=== PATIENT | female | born 1980 | race Caucasian/White ===

== ENCOUNTER 2025-04-20 16:09 | Emergency (ER) | payer MEDICAID ==
[~2025-04-20] VITALS: Ht 170.2 cm; Wt 140.9 kg
[2025-04-20 16:12] VITALS: TEMP 98.4
--- NOTE | 2025-04-20 16:22 | ELECTROCARDIOGRAPH REPORT ---
[facility] Test Date: 2025-04-20 Test Time: 16:20:35 Pat Name: WENDY YADAV Department: EMERGENCY ROOM Room: Gender: F Pc Tech: KACI : 1980 Requested By: CARMEN MCCORMACK Order Number: [id number] Reading MD: Measurements Intervals [place] Rate: 146 P: 71 MN: 137 QRS: 53 QRSD: 81 T: 12 QT: 273 QTc: 426 Interpretive Statements Sinus tachycardia Abnormal R-wave progression, late transition Baseline wander in lead(s) II,III,aVL,aVF,V1 Please click the below link to view image of tracing.
--- NOTE | 2025-04-20 16:43 | Physician Documentation ---
History of Present Illness ~ Chief Complaint: Medical Clearance Stated Complaint: MED CLEARANCE Time Seen by MD: 16:42 HPI This is a 44-year-old female with a history of heavy alcohol use. She reports that today, she was on her way to [place] for alcohol rehab, when she began to feel very unwell. She admits that she drank an entire bottle of Tequila in anticipation of entering rehab. This is a little more than her usual amount to drink at one time. With questioning, she admits that she is having chest pain and overall does not feel right. Medication Reconciliation Allergies: Coded Allergies: No Known Allergies (Unverified , 04/20/25) Scheduled Folic Acid* (Folic Acid*), 1 TAB PO DAILY Lorazepam (Ativan), 1 TAB PO Q8H Mecobalamin (B12 Active), 1 TAB PO DAILY Ondansetron 8mg ODT (Ondansetron Odt), 1 TAB PO Q6H Thiamine HCl (Vitamin B-1), 2 TAB PO DAILY Review of Systems ROS As stated above in the HPI, otherwise all systems are reviewed and negative. Physical Exam Vital Signs: Temperature: 98.4, Source: Temporal, Heart Rate: 135, Respiratory Rate: 17, BP: 91/52, Pulse Oximetry: 94, Weight: 140.910 Physical Exam General: Alert, no apparent distress. HEENT: PERRL, EOMI, no injection, moist mucous membranes. Neck: Full range of motion. Respiratory: Lungs clear, no respiratory distress. Chest: No accessory muscle use. Cardiovascular: Regular rate and rhythm, no murmurs. Tachycardic. Gastrointestinal: Soft, nontender, nondistended. Bowels sounds present. Extremities: Normal range of motion, no deformity. Neurologic: Oriented x4. Slurred speech, somewhat slow to respond. Psychiatric: Normal mood and affect. Skin: Normal color, warm and dry. No edema, no ecchymosis. Progress Results/Orders Results/Orders Orders - MARINA ASHLEY STEWARD/STEWARDESS THIRD * Iv Access / Saline Lock * (04/20/25 16:43) Completed Orders - MARINA ASHLEY STEWARD/STEWARDESS THIRD Ethanol (04/20/25 16:43) Normal Saline 1000ml (0.9% Sodium Chlori (04/20/25 16:45) Hs Troponin I W Calculations (04/20/25 16:54) Potassium Cl Sr Tablet (K-Dur Tablet) (04/20/25 17:45) Medications Received in ER Medications (Trade) Dose Ordered Sig/Sabiha Route PRN Reason Start Time Stop Time Status Last Admin Dose Admin Sodium Chloride 1,000 ml @ 1,000 mls/hr ONCE ONCE IV 04/20/25 16:45 04/20/25 17:44 DC 04/20/25 17:34 1,000 MLS/HR Vital Signs 04/20/25 16:12 Temp 98.4 Pulse 135 Resp 17 B/P (MAP) 91/52 Pulse Ox 94 Laboratory Tests Test 04/20/25 17:04 White Blood Count 12.3 H Red Blood Count 5.16 Hemoglobin 14.0 Hematocrit 43.5 Mean Corpuscular Volume 84.2 Mean Corpuscular Hemoglobin 27.2 Mean Corpuscular Hemoglobin Concent 32.3 L Red Cell Distribution Width 15.5 H Platelet Count 460 H Mean Platelet Volume 7.1 L Neutrophils (%) (Auto) 66.4 Lymphocytes (%) (Auto) 27.8 Monocytes (%) (Auto) 3.4 Eosinophils (%) (Auto) 1.6 Basophils (%) (Auto) 0.8 Neutrophils # (Auto) 8.2 H Lymphocytes # (Auto) 3.4 Monocytes # (Auto) 0.4 Eosinophils # (Auto) 0.2 Basophils # (Auto) 0.1 CBC Comment Sodium Level 141 Potassium Level 3.2 L Chloride Level 103 Carbon Dioxide Level 24.8 Anion Gap 13 Blood Urea Nitrogen 13 Creatinine 0.93 H Estimated GFR/1.73 m2 65 BUN/Creatinine Ratio 14.0 Glucose Level 105 H Calcium Level 8.0 L Total Bilirubin 0.2 Aspartate Amino Transf (AST/SGOT) 28 Alanine Aminotransferase (ALT/SGPT) 30 Alkaline Phosphatase 155 H Troponin I High Sensitivity 11 Total Protein 7.2 Albumin 2.9 L Globulin 4.3 Albumin/Globulin Ratio 0.7 L Lipase 23 Chemistry Comments Ethyl Alcohol Level 283 H EKG/XRAY/CT/US/VASC/MRI EKG : Additional Comment 1620 EKG interpreted to show ST rate of 140's. No ST segment elevation. QTC 426 ms. Medical Decision Making Differential Diagnosis This 44-year-old female with a history of alcohol use disorder who presented today requesting medical clearance to enter [facility]. She presented here due to not feeling well. She admitted that she drank an entire bottle of Tequila in anticipation of presenting to the rehab facility. This is a little more than she usually drinks in one sitting. She was evaluated in the emergency department and found to have a blood alcohol level that was markedly elevated at 283. She denied nausea or vomiting. She was treated with a liter of saline as a bolus. Her slightly low potassium of 3.2 was replaced with 20 mEq of KCl. She will be sent to rehab after being medically cleared. She will be sent with B12, thiamine, folic acid, p.r.n. Ativan. She is to return to the emergency de partment at any time if worse. Departure Time of Disposition: 17:53 Disposition: 01 HOME / SELF CARE / HOMELESS Impression: Primary Impression: Alcoholic intoxication Additional Impression: General medical exam Condition: Stable Discharge Instructions: Alcohol Abuse and Nutrition, Alcohol Intoxication, Medical Screening Exam Additional Instructions: MEDICALLY CLEARED TO ENTER REHABILITATION AT [place]. Use the Lorazepam as needed for symptoms of alcohol withdrawal. Take the vitamins as prescribed. RETURN IF WORSE. Referrals: NO PRIMARY CARE PROVIDER (PCP) Prescriptions Lorazepam (Ativan) 1 Mg Tablet 1 TAB PO Q8H for alcohol w/d symptoms for 5 Days, #15 TAB 0 Refills Prov: MARINA ASHLEY NP 04/20/25 Folic Acid* (Folic Acid*) 0.4 Mg Tablet 1 TAB PO DAILY for 30 Days, #30 TAB Prov: MARINA ASHLEY NP 04/20/25 Mecobalamin (B12 Active) 1,000 Mcg Tab.chew 1 TAB PO DAILY for 30 Days, #30 TAB 0 Refills Prov: MARINA ASHLEY NP 04/20/25 Thiamine HCl (Vitamin B-1) 50 Mg Tablet 2 TAB PO DAILY for 30 Days, #60 TAB 0 Refills Prov: MARINA ASHLEY NP 04/20/25 Ondansetron 8mg ODT (Ondansetron Odt) 8 Mg Tab.rapdis 1 TAB PO Q6H for nausea/vomiting for 3 Days, #12 TAB 0 Refills Prov: MARINA ASHLEY NP 04/20/25 Education Educated: Patient, Family Educated regarding: diagnosis, treatment, prognosis, need for follow up Signature Scribe Signature: x Attestation: The note accurately reflects work and decisions made by me.Marina Smalls NP 04/20/25 16:51 MARINA ASHLEY NP Apr 20, 2025 16:42
[2025-04-20 17:30] LABS: CREATININE 0.93 MG/DL (0.40-0.90); ETHANOL 283 MG/DL (<10); TOTAL CARBON DIOXIDE 24.8 MMOL/L (24-32); eCRCL 74 ML/MIN; eGFR 65 ML/MIN
[2025-04-20] MEDS: normal saline 1000ml 1,000 ML IV ONE (17:34)
[2025-04-20 17:35] LABS: MEAN PLATELET VOLUME 7.1 FL (7.4-10.4); RED CELL DISTRIBUTION WIDTH 15.5 % (11.5-14.5)
[2025-04-20] MEDS ORDERED: THIA50TA10 PO (17:55)
[2025-04-20] MEDS ORDERED: FOLI0.4T6 PO (17:55)
[2025-04-20] MEDS ORDERED: LORA-269 PO (17:55)
[2025-04-20] MEDS ORDERED: MECO10005 PO (17:55)
[2025-04-20] MEDS ORDERED: ONDA-245 PO (17:55)
[2025-04-20 18:24] VITALS: BP 108/75; PULSE 98; RESP 19; O2SAT 96
[2025-04-20] MEDS: potassium Cl 20 mEq SR tablet PO ONE (18:24)
[2025-04-21] MEDS ORDERED: ZOLP-679 PO (18:57)
[2025-04-21] MEDS ORDERED: PROP20TA6 PO (18:57)
[2025-04-21] MEDS ORDERED: ESCI20TA39 PO (18:57)
[2025-04-21] MEDS ORDERED: L-NO1TBD14 PO (18:57)
[2025-04-21] MEDS ORDERED: LORA-269 PO (18:57)
[2025-04-21] MEDS ORDERED: CYPR4TAB44 PO (18:57)
[2025-04-21] MEDS ORDERED: ERGO500093 PO (18:57)
[2025-04-21] MEDS ORDERED: BUPR-726 PO (18:57)
== END 2025-04-20 18:27 | disposition home or self-care (01) ==
LOC: ER 16:10
DX: F10.129 Alcohol abuse with intoxication, unspecified (principal); Z79.899 Other long term (current) drug therapy; Y90.9 Presence of alcohol in blood, level not specified
CPT/HCPCS: 36415; 80053; 80320; 83690; 84484; 85025; 93005; 96360; 99284; J7030

== ENCOUNTER 2025-04-21 06:14 | Inpatient (IN) | payer MEDICAID ==
[~2025-04-21] VITALS: Ht 165.1 cm; Wt 107.3 kg
[~2025-04-21 06:14] MED LIST: FOLI0.4T6 PO; LORA-269 PO; MECO10005 PO; ONDA-245 PO; THIA50TA10 PO
--- NOTE | 2025-04-21 08:30 | Physician Documentation ---
History of Present Illness General Chief Complaint: Medical Clearance Stated Complaint: GENERAL WEAKNESS Time Seen by MD: 08:16 History of Present Illness Initial Comments The patient is a 44-year-old female with a history of alcohol use disorder who comes here from [facility] because she was vomiting all last night. She is from [place], [place] and was referred to [facility] by her PCP. She was seen here yesterday prior to entering [facility] after having drunk an entire bottle of Tequila. She was treated here and referred back to [facility]. Prescriptions for vitamins and Ativan were provided. She reports that the vitamins were dispensed but the Ativan was not. Her current CIWA score is 15. She also has some right upper quadrant pain and is status post cholecystectomy years ago. Patient had one alcohol withdrawal seizure years ago. Medication Reconciliation Allergies: Coded Allergies: No Known Allergies (Unverified , 04/20/25) Scheduled Folic Acid* (Folic Acid*), 1 TAB PO DAILY Lorazepam (Ativan), 1 TAB PO Q8H Mecobalamin (B12 Active), 1 TAB PO DAILY Ondansetron 8mg ODT (Ondansetron Odt), 1 TAB PO Q6H Thiamine HCl (Vitamin B-1), 2 TAB PO DAILY Review of Systems ROS Constitutional: Denies chills, fatigue, fever, weight gain or weight loss. HEENT: Denies hearing loss, sinus pressure or visual changes. Respiratory: Denies cough, shortness of breath or wheezing. Cardiovascular: Denies chest pain, pain while walking (claudication), edema or palpitations. Gastrointestinal: Nausea, vomiting and right upper quadrant pain Genitourinary: Denies painful urination (dysuria), excessive amount of urine (polyuria) or urinary frequency. Metabolic/Endocrine: Denies cold intolerance, heat intolerance, excessive thirst (polydipsia) or excessive hunger (polyphagia). Neurological: Anxious and tremulous Psychiatric: Denies anxiety or depression. Integumentary: Denies breast discharge, breast lump, hives, mole change(s), shea h or skin lesion. Musculoskeletal: Denies back pain, joint pain, joint swelling or neck pain. Hematologic: Denies easily bleeding, easily bruises, lymphedema or issues with blood clots. Immunologic: Denies food allergies or seasonal allergies. Physical Exam Physical Exam Vital Signs: Temperature: 97.9, Source: Temporal, Heart Rate: 83, Respiratory Rate: 20, BP: 146/59, Pulse Oximetry: 98, Weight: 107.280 Oxygen Flow Rate: 0 Physical Exam Physical Exam Vitals and nursing note reviewed. Constitutional: General: Patient is awake, alert, oriented x 4 in no acute distress and well appearing. Speech is clear and lucid. Appearance: Normal appearance. Patient is not ill-appearing, toxic-appearing or diaphoretic. HENT: Head: Normocephalic and atraumatic. Mouth/Throat: Mouth: Mucous membranes are moist. Pharynx: Oropharynx is clear. Eyes: General: No scleral icterus. Extraocular Movements: Extraocular movements intact. Pupils: Pupils are equal, round, and reactive to light. Neck: Supple, no Kernig or Brudzinski sign. Cardiovascular: Rate and Rhythm: Normal rate and regular rhythm. Heart sounds: No murmur heard. Pulmonary: Effort: No respiratory distress. Breath sounds: No wheezing, rhonchi or rales. Abdominal: General: There is no distension. Palpations: There is no fluid wave, hepatomegaly or mass. Tenderness: Mild right upper quadrant tenderness. There is no guarding. Musculoskeletal: General: No swelling or deformity. Skin: Coloration: Skin is not jaundiced. Findings: No erythema or rash. Neurological: Mental Status: Patient is alert. Progress Results/Orders Results/Orders Orders - BEATRIS LUONG MD Drug Screen, Urine (04/21/25 08:23) Ultrasound Of Abdomen (04/21/25 08:32) Page Hospitalist (04/21/25 09:51) Completed Orders - BEATRIS LUONG MD CMP (04/21/25 08:23) Cbc/Diff (04/21/25 08:23) Ethanol (04/21/25 08:23) MG (04/21/25 08:23) Lipase (04/21/25 08:23) Pt Inr (04/21/25 08:23) Normal Saline 1000ml (0.9% Sodium Chlori (04/21/25 08:25) Phenobarbital Inj (Phenobarbital Inj.) (04/21/25 08:25) Diphenhydramine Inj (Benadryl Inj.) (04/21/25 08:25) Prochlorperazine Inj (Compazine Inj) (04/21/25 08:25) Ultrasound Of Abdomen (04/21/25 08:32) Medications Received in ER Medications (Trade) Dose Ordered Sig/Sabiha Route PRN Reason Start Time Stop Time Status Last Admin Dose Admin Sodium Chloride 1,000 ml @ 1,000 mls/hr ONCE ONCE IV 04/21/25 08:25 04/21/25 09:24 DC 04/21/25 09:13 1,000 MLS/HR (phenoBARBITAL inj.) 260 mg ONCE ONCE IV 04/21/25 08:25 04/21/25 08:30 DC 04/21/25 09:13 260 MG (Benadryl inj.) 25 mg ONCE ONCE IV 04/21/25 08:25 04/21/25 08:30 DC 04/21/25 09:14 25 MG (Compazine inj) 10 mg ONCE ONCE IV 04/21/25 08:25 04/21/25 08:30 DC 04/21/25 09:13 10 MG Vital Signs 04/21/25 04/21/25 04/21/25 04/21/25 06:21 08:17 08:30 09:25 Temp 97.9 98.4 Pulse 83 76 76 Resp 20 16 13 13 B/P (MAP) 146/59 130/66 (87) 130/66 (87) Pulse Ox 98 97 97 O2 Flow Rate 0 0 0 Laboratory Tests Test 04/21/25 08:42 White Blood Count 12.7 H Red Blood Count 4.76 Hemoglobin 13.2 Hematocrit 39.9 Mean Corpuscular Volume 83.9 Mean Corpuscular Hemoglobin 27.8 Mean Corpuscular Hemoglobin Concent 33.2 Red Cell Distribution Width 15.2 H Platelet Count 345 Mean Platelet Volume 7.4 Neutrophils (%) (Auto) 81.4 H Lymphocytes (%) (Auto) 10.6 L Monocytes (%) (Auto) 6.7 Eosinophils (%) (Auto) 0.6 Basophils (%) (Auto) 0.7 Neutrophils # (Auto) 10.3 H Lymphocytes # (Auto) 1.3 Monocytes # (Auto) 0.9 Eosinophils # (Auto) 0.1 Basophils # (Auto) 0.1 CBC Comment Prothrombin Time 9.7 INR International Normalized Ratio 0.9 Coagulation Comments Sodium Level 137 Potassium Level 3.8 Chloride Level 99 Carbon Dioxide Level 27.1 Anion Gap 11 Blood Urea Nitrogen 10 Creatinine 0.71 Estimated GFR/1.73 m2 89 BUN/Creatinine Ratio 14.1 Glucose Level 113 H Calcium Level 8.7 Magnesium Level 1.7 Total Bilirubin 0.7 Aspartate Amino Transf (AST/SGOT) 24 Alanine Aminotransferase (ALT/SGPT) 28 Alkaline Phosphatase 131 H Total Protein 6.5 Albumin 2.8 L Globulin 3.7 Albumin/Globulin Ratio 0.8 L Lipase 13 L Chemistry Comments Ethyl Alcohol Level < 10 Medical Decision Making Findings This 44-year-old female with alcohol use disorder presents here from the rehabilitation facility because she was vomiting excessively last night unresponsive to Zofran. CIWA scores 15. She did have some right upper quadrant pain but the ultrasound of the right upper quadrant is negative for acute findings (she is status post cholecystectomy). I am treating her for alcohol withdrawal and she will require admission. Departure Disposition: ADMITTED INPATIENT Admitted to Inpatient Unit: to hospitalist Impression: Primary Impression: Alcohol withdrawal Condition: Stable Referrals: NO PRIMARY CARE PROVIDER (PCP) Signature Scribe Signature: . Attestation: . BEATRIS LUONG MD Apr 21, 2025 08:30
[2025-04-21 09:09] LABS: MEAN PLATELET VOLUME 7.4 FL (7.4-10.4); RED CELL DISTRIBUTION WIDTH 15.2 % (11.5-14.5)
[2025-04-21 09:10] LABS: INR 0.9 INR
[2025-04-21] MEDS: normal saline 1000ml 1,000 ML IV ONE (09:13)
[2025-04-21 09:25] LABS: CREATININE 0.71 MG/DL (0.40-0.90); TOTAL CARBON DIOXIDE 27.1 MMOL/L (24-32); eCRCL 90 ML/MIN; eGFR 89 ML/MIN
--- NOTE | 2025-04-21 09:29 | RADIOLOGY REPORT ---
INDICATION: Right upper quadrant pain TECHNIQUE: Multiple real-time sonographic images were obtained of the right upper quadrant. COMPARISON: None FINDINGS: The liver demonstrates homogeneous echotexture without focal mass lesions. The liver measures 16 cm. There is no intrahepatic or extrahepatic ductal dilatation. The common duct measures 0.4 cm. Post cholecystectomy. The right kidney measures 10.3 cm. The right kidney is normal in contour, size, and shape. The echogenicity is normal. There is no hydronephrosis. The pancreas is not well visualized due to overlying bowel gas. IMPRESSION: Post cholecystectomy. No acute findings.
[2025-04-21 09:30] LABS: ETHANOL < 10 MG/DL (<10)
[2025-04-21] MEDS ORDERED: potassium Cl 40MEQ/1/2NS 520ml 520 ML IV PRN (11:15)
[2025-04-21] MEDS ORDERED: potassium Cl 20 mEq SR tablet PO PRN (11:15)
[2025-04-21] MEDS ORDERED: ondansetron/PF 4mg/2ml inj IV PRN (11:15)
[2025-04-21] MEDS ORDERED: magnesium sulf-water 4G/100mL 100 ML IV PRN (11:15)
[2025-04-21] MEDS ORDERED: magnesium hydroxide 30ml (MOM) UD suspension PO PRN (11:15)
[2025-04-21] MEDS ORDERED: magnesium sulf-water 2g/50mL 50 ML IV PRN (11:15)
[2025-04-21] MEDS ORDERED: magnesium Cl slow-release 64mg tablet PO PRN (11:15)
[2025-04-21] MEDS: normal saline 1000ml 1,000 ML IV SCH (11:47)
[2025-04-21 11:57] LABS: APTT 26 SECONDS (22-32)
[2025-04-21 12:07] LABS: PHOSPHORUS 1.9 MG/DL (2.3-4.5); PRO BRAIN NATRIURETIC PEPTIDE 161.0 PG/ML (0-125)
[2025-04-21 12:29] LABS: LEUKOCYTE ESTERASE ,URINE TRACE (Neg); NITRITES, URINE NEGATIVE (Neg); OCCULT BLOOD,URINE TRACE-INTACT (Neg)
[2025-04-21 12:42] LABS: UA COLLECTION TYPE NON-SPECIFIED
[2025-04-21 12:46] LABS: URINE AMPHETAMINE SCREEN NEGATIVE (Neg); URINE BARBITUATE SCREEN POSITIVE (Neg); URINE BENZODIAZEPINES SCREEN NEGATIVE (Neg); URINE CANNABINOID SCREEN NEGATIVE (Neg); URINE COCAINE SCREEN NEGATIVE (Neg); URINE METHADONE SCREEN NEGATIVE (Neg); URINE OPIATE SCREEN NEGATIVE (Neg); URINE PHENCYCLIDINE SCREEN NEGATIVE (Neg)
[2025-04-21 12:52] LABS: MUCUS STRANDS FEW /LPF (Neg); SQUAMOUS EPITHELIAL CELL,UR MODERATE /LPF (FEW)
--- NOTE | 2025-04-21 15:38 | HISTORY AND PHYSICAL-Residence ---
History & Physical Providers to Resident Creating Document: TEMO CAMACHO, RES ~ History of Present Illness Primary Medical Doctor: DR MARIBETH ROSE Reason for Admit\Complaint: Alcohol withdrawal History of Present Illness 44-year-old female with a history of alcohol use disorder presented to the ER from [facility] with complaints of vomiting since last night. She states that she had nonbilious, nonbloody emesis with food contents more than 5 to 6 times, which started at 2:30 a.m. in the night. She reports that she ate spaghetti with salad last night. She is from [place], [place] and was referred to [facility] by her PCP. She was seen here yesterday prior to entering [facility] after having drunk an entire bottle of Tequila. She was treated here and referred back to [facility]. Prescriptions for vitamins and Ativan were provided. She reports that the vitamins were dispensed but the Ativan was not. She states that she had diaphoresis and felt weak when she vomited. She reports feeling foggy, mildly confused and anxious. She also reports her hands shaking when she came to the ER, but has subsided now. She states that she feels her heart racing when she is anxious. She also reports right upper quadrant pain with a severity of 3/10 since last night. She had cholecystectomy in 2020. She reports having headache since last night which is getting better. She reports having alcohol withdrawal seizure and hallucinations a year ago. She states having POTS (postural orthostatic tachycardia syndrome) and states that she feels dizzy when she stands in the same place more than 10 minutes without moving. She is not agitated, denies having hallucinations or suicidal ideation. She denies chest pain, dizziness, shortness of breath, cough, palpitations, syncope, falls, changes in appetite or weight, fever, chills, melena, hematochezia, constipation, diarrhea, burning micturition, frequency, urgency, pruritus. Allergies: Coded Allergies: No Known Allergies (Unverified , 04/20/25) Home Medications Home Medications Active Ativan (Lorazepam) 1 Mg Tablet 1 Tab PO Q8H 5 Days Folic Acid* (Folic Acid) 0.4 Mg Tablet 1 Tab PO DAILY 30 Days B12 Active (Mecobalamin) 1,000 Mcg Tab.chew 1 Tab PO DAILY 30 Days Vitamin B-1 (Thiamine HCl) 50 Mg Tablet 2 Tab PO DAILY 30 Days Ondansetron Odt (Ondansetron HCl) 8 Mg Tab.rapdis 1 Tab PO Q6H 3 Days Past Medical History Past Medical History Alcohol withdrawal Anxiety Depression Past Surgical History Surgical History Comment Cholecystectomy Gastric bypass ( Val-[place]-Y ) Surgical repair for gastrointestinal perforation Tummy tuck surgery Past Social History Social History Comment She binge drinks alcohol at least once a month since 2013. Her last drink was 1 bottle of Tequila yesterday 2:00 p.m. in the afternoon. She drank 1 bottle of vodka and 3 bottles of Tequila this week. She is a nonsmoker She denies recreational drug use, except gummies rarely She is currently at the [facility] for alcohol drug abuse She does not work, she is on a disability ROS ROS Constitutional: No fever, chills, dizziness, weight gain or loss Eyes: No pain, erythema, discharge, blurring of vision ENT: No sore throat, epistaxis, tinnitus Cardiovascular: No chest pain, palpitations, syncope, lower extremity edema, paroxysmal nocturnal dyspnea Respiratory: No Shortness of breath and cough, No hemoptysis. Gastrointestinal: Reports RUQ abdominal pain and vomiting, nausea, constipation, diarrhea. Normal appetite. No hematemesis or melena. Musculoskeletal: No swelling, pain in bilateral lower legs. Integumentary: No change in skin, hair, nails. No swelling, bruising, abrasions Neurologic: Reports headache, No weakness, neck pain, numbness or tingling of the extremities, Psychiatric: Reports anxiety and depression, No delusions, loss of interest in normal activity or change in sleep pattern, hallucinations, suicidal ideations Endocrine: Reports fatigue, no weakness. polydipsia, polyuria, change in appetite, heat or cold intolerance, sweating, dry skin Hematological: No bleeding, petechiae, bruising Allergies: No asthma or urticaria Exam Vitals: Vital Signs Date Time Temp Pulse Resp B/P (MAP) Pulse Ox O2 Delivery O2 Flow Rate FiO2 04/21/25 13:30 69 15 131/63 (85) 96 0 04/21/25 09:25 98.4 General: Awake , alert, and oriented x4, resting comfortably in the bed, in no acute distress HEENT: Atraumatic, normocephalic, EOMI, anicteric sclera ; pink conjunctiva Neck: Trachea midline. Supple, full range of motion, no JVD Cardiac: Regular rhythm, regular rate with no murmurs all over the precordium. Respiratory: Equal breath sounds bilaterally, no tachypnea, no wheezing ,rub or rales, Chest wall is symmetric and without deformity. Gastrointestinal: Tenderness on deep palpation of left lumbar, epigastric and right hypochondriac and lumbar regions, Abdomen symmetric, non-distended, soft, normal bowel sounds x4 quadrant, normoactive, no hepatosplenomegaly Musculoskeletal: No pedal edema, no cyanosis Neurological: Speech is clear, alert, and oriented x 4. No motor or sensory deficit, deep tendon reflexes normal, cerebellar intact. Cranial nerves II-XII intact. Skin: Warm and dry Diagnostic Data Last Recorded Lab Results: 04/21/25 0842 04/21/25 0842 Diagnostic Data: Laboratory Tests Test 04/21/25 08:42 04/21/25 11:33 Prothrombin Time 9.7 SECONDS (9.0-12.0) INR International Normalized Ratio 0.9 INR Activated Partial Thromboplast Time 26 SECONDS (22-32) Coagulation Comments Additional Plan Alcohol Withdrawal Syndrome CIWA score-11 Ethyl alcohol<10 Urine tox screen positive for barbiturates IV Phenobarbital 260 mg, Benadryl 25 mg and compazine 10 mg were given in the ED Electrolytes normal, vitals stable Probable reactive leukocytosis, monitor CBC Lipase normal Normal liver panel Plan: Started moderate alcohol withdrawal protocol Ordered thiamine and folate Started clear liquid diet, monitor and advance as tolerated Continue monitoring vitals and electrolytes Possible UTI Urinalysis positive for trace leukocyte esterase, 5-10 WBC and 2+ bacteria Follow up urine cultures Anxiety Depression #Pending med reconciliation Code status: Full code DVT prophylaxis: Heparin subQ Diet/nutrition: Clear liquid diet Prognosis: Guarded Resident attestation: The patient note has been reviewed and supervised by senior residents PGY-2/ PGY-3. Patient was seen, examined and discussed with attending physician. Temo Camacho MD Internal Medicine resident, PGY-1 Date of Service: Apr 21, 2025 Billing Provider: MARY JANE OLIVIA MD Common Visit Codes: 77246-[id number] INP/OBS CARE (HIGH) Secondary Visit Codes: [id number] CARE PLAN 30 MINUTES TEMO CAMACHO, RES Apr 21, 2025 15:38 MARY JANE OLIVIA MD Apr 21, 2025 18:53
[2025-04-21 18:30] VITALS: BP 109/48; PULSE 72; RESP 16; TEMP 98.6; O2SAT 94
[2025-04-21] MEDS ORDERED: ESCI20TA39 PO (18:57)
[2025-04-21] MEDS ORDERED: PROP20TA6 PO (18:57)
[2025-04-21] MEDS ORDERED: BUPR-726 PO (18:57)
[2025-04-21] MEDS ORDERED: L-NO1TBD14 PO (18:57)
[2025-04-21] MEDS ORDERED: LORA-269 PO (18:57)
[2025-04-21] MEDS ORDERED: CYPR4TAB44 PO (18:57)
[2025-04-21] MEDS ORDERED: ERGO500093 PO (18:57)
[2025-04-21] MEDS ORDERED: ZOLP-679 PO (18:57)
[2025-04-21] MEDS: docusate sod 100mg capsule PO SCH (19:07)
[2025-04-21] MEDS ORDERED: ZOLPIDEM TARTRATE 10 MG PO SCH (19:40)
[2025-04-21] MEDS: ondansetron 4mg rapidly disintigrating tab PO SCH (20:00)
[2025-04-21] MEDS: K and/or MAG REPLACEMENT MC SCH (20:00)
[2025-04-21] MEDS ORDERED: propranolol 10mg tablet PO PRN (20:00)
[2025-04-21] MEDS: thiamine 100mg/ml 2ml inj. IV SCH (21:23)
[2025-04-21] MEDS: heparin, porcine 5000 units/ml vial SQ SCH (21:24)
[2025-04-21] MEDS ORDERED: diazepam inj 5 MG/ML inj. IV PRN (21:45)
[2025-04-21 22:00] VITALS: BP 140/54; PULSE 79; RESP 15; TEMP 98.6; O2SAT 96
[2025-04-22] VITALS (7 sets, daily range): BP systolic 108–195; BP diastolic 58–93; PULSE 71–104; RESP 17–18; TEMP 97.1–98.9; O2SAT 92–96
[2025-04-22 06:49] LABS: MEAN PLATELET VOLUME 7.4 FL (7.4-10.4); RED CELL DISTRIBUTION WIDTH 15.2 % (11.5-14.5)
[2025-04-22 07:14] LABS: CHOL/HDL RATIO 4.2 (0.00-4.99); CREATININE 0.72 MG/DL (0.40-0.90); LDL CHOLESTEROL 84 MG/DL (50-100); TOTAL CARBON DIOXIDE 29.1 MMOL/L (24-32); eCRCL 89 ML/MIN; eGFR 88 ML/MIN
[2025-04-22] MEDS: NORGEST ETH ESTR PO SCH (08:00)
[2025-04-22] MEDS: ETHIN ESTRA PO SCH (08:00)
[2025-04-22] MEDS ORDERED: ergocalciferol (vit D2) capsule 50,000 UNITS (1,250mcg) CAPSULE PO SCH (08:05)
[2025-04-22] MEDS: cyanocobalamin 500mcg tablet PO SCH (08:29)
[2025-04-22] MEDS: multivitamins, therapeutics tablet PO SCH (08:29)
[2025-04-22] MEDS: BUPROPION HCL 150MG XL 24 HR 150 MG TAB PO SCH (08:29)
[2025-04-22] MEDS: ESCITALOPRAM 10 mg tablet 10 MG TABLET PO SCH (08:30)
[2025-04-22] MEDS: ergocalciferol (vit D2) capsule 50,000 UNITS (1,250mcg) CAPSULE PO SCH (08:35)
[2025-04-22] MEDS: potassium Cl 20 mEq SR tablet PO PRN (10:44)
[2025-04-22] MEDS: folic acid 1mg/0.2ml inj IV SCH (10:46)
[2025-04-22] MEDS: HYDROcodone/acetaminophen 5mg/325mg tablet PO ONE (12:54)
--- NOTE | 2025-04-22 13:23 | PROGRESS NOTE- Residence ---
Progress Note - Resident Providers to CC Resident Creating Document: KIMMY MARES RES ~ Antibiotic Timeout Antibiotic Ordered?: Yes Subjective Patient stated that her withdrawal symptoms are much better than yesterday although she is little bit shaky this morning. She complains of a headache- which the patient states she has frequent headaches and is usually relieved with ibuprofen or naproxen. Objective Vital Signs Date Time Temp Pulse Resp B/P (MAP) Pulse Ox O2 Delivery O2 Flow Rate FiO2 04/22/25 12:54 16 04/22/25 10:00 98.6 77 127/70 (89) 96 Room Air 04/21/25 16:00 0.0 Result Diagram: 04/22/2518 04/22/25 0618 Vitals were stable at the moment with temp 98.6 F, CT 89/minute, RR 70/minute, BP 130/64 mm Hg, pulse oximetry 94% on room air. On exam, General: Well alert, well oriented, not confused, not agitated, not in acute distress, well cooperated during the physical. HEENT: Conjunctive are pink, sclerae clear, no icterus, pupil is equal in both sides, reactive to light, no ear discharge, no pharyngeal erythema or an edema, mouth and lips are moist. Neck: Supple, no JVD, no lymphadenopathy and thyromegaly. Lungs:Equal air entry on both lungs, no additional sounds Heart: S1-S2 regular sinus rhythm and, regular rate, no gallops, no rubs, no murmurs Abdomen: No visible peristalsis, Bowel sounds present on auscultation, soft, nontender, no guarding, no rigidity Extremities: No obvious deformities, no pitting edema bilaterally, capillary refill intact, able to wiggle toes both sides, peripheral pulsations are intact on both sides ANIMAL TRAINER: No focal neurological deficits, no motor and sensory weakness in all 4 extremities, could move all 4 extremities Musculoskeletal: No joint swelling, deformities, inflammations, and no scoliosis and back tenderness Skin: No active skin lesions and rashes Coagulation Studies Laboratory Tests Test 04/21/25 08:42 04/21/25 11:33 Prothrombin Time 9.7 SECONDS (9.0-12.0) INR International Normalized Ratio 0.9 INR Activated Partial Thromboplast Time 26 SECONDS (22-32) Coagulation Comments Assessment Assessment A 44 years old female with a past medical history of alcohol use disorder, anxiety depression, s/p cholecystectomy, Val-en-Y gastric bypass surgery, surgical repair for gastro intestinal perforation, tummy tuck surgery presented to ER with the complaints of intolerable severe vomiting over one nine after she binged alcohol. Plan Plan # Alcohol Withdrawal Syndrome, CIWA score-11 # Alcohol use disorder, binge drinking Ethyl alcohol<10 Urine tox screen positive for barbiturates IV Phenobarbital 260 mg, Benadryl 25 mg and compazine 10 mg were given in the ED Electrolytes normal, vitals stable Probable reactive leukocytosis, monitor CBC Lipase normal Normal liver panel Plan: Started moderate alcohol withdrawal protocol Ordered thiamine and folate Started clear liquid diet, monitor and advance as tolerated Continue monitoring vitals and electrolytes 04/22/25: continue EtOH withdrawal protocol -continue IV Folic acid and B12 to switch to oral on discharge -anticipating discharge on tomorrow -educated about the EtoH risks and linked with major diseases including malignancy risks -continue substance navigator and bilingual social worker -educated to get help from PCP for the EtOH quitting plan # Possible UTI Urinalysis positive for trace leukocyte esterase, 5-10 WBC and 2+ bacteria Follow up urine cultures 04/22/25: pending Urine C&S, and continue IV ceftriaxone -urine culture preliminary report showed mixed chanel isolated # Anxiety # Depression Continue home medication after med reconciliation was done Code status: Full code DVT prophylaxis: Heparin subQ Diet/nutrition: Clear liquid diet Prognosis: Guarded Resident attestation: Patient was seen, examined and discussed with attending physician, Dr. Jenise MARES MD Internal Medicine Resident, PGY3 [facility] Date of Service: Apr 22, 2025 Billing Provider: ADRIAN GAUTAM DO Common Visit Codes: [id number] INP/OBS CARE(HIGH) KIMMY MARES, RES Apr 22, 2025 13:23 ADRIAN GAUTAM DO Apr 22, 2025 15:00
[2025-04-22] MEDS: CYPROHEPTADINE 4 MG TABLET PO PRN (14:53)
[2025-04-22] MEDS: normal saline 500ml IV soln 500 ML IV ONE (18:01)
[2025-04-22] MEDS ORDERED: DEXTROSE 15 GM of carb/4 tabs (each vial/BOTTLE has 4 tablets) PO PRN ×2 (20:50)
[2025-04-22] MEDS ORDERED: glucagon, human recombinant 1mg kit SUBCUT PRN (20:50)
[2025-04-22] MEDS ORDERED: dextrose 50%-water 50ml dispensing syringe IV PRN ×2 (20:50)
[2025-04-23] MEDS: mag hydrox/Alum hydrox/simeth 30ml oral suspension PO PRN (01:08)
[2025-04-23 04:36] VITALS: BP_SYST 108; BP_SYST 127; BP_DIAS 61; BP_DIAS 69; BP_DIAS 81; PULSE 112; PULSE 78; PULSE 80
[2025-04-23 05:00] VITALS: BP 114/66; PULSE 76; RESP 17; TEMP 99.2; O2SAT 91
[2025-04-23 06:54] LABS: MEAN PLATELET VOLUME 7.5 FL (7.4-10.4); RED CELL DISTRIBUTION WIDTH 15.3 % (11.5-14.5)
[2025-04-23 07:01] LABS: CREATININE 0.66 MG/DL (0.40-0.90); TOTAL CARBON DIOXIDE 29.7 MMOL/L (24-32); eCRCL 97 ML/MIN; eGFR > 90 ML/MIN
[2025-04-23 08:45] VITALS: BP 138/85; PULSE 106; RESP 16; TEMP 100; O2SAT 95
[2025-04-23 08:58] VITALS: RESP 16; O2SAT 95
[2025-04-23] MEDS ORDERED: NALT50TA5 PO (09:49)
[2025-04-23 10:00] VITALS: BP_SYST 131; BP_SYST 144; BP_SYST 146; BP_DIAS 65; BP_DIAS 66; BP_DIAS 75; PULSE 102; PULSE 116; PULSE 94; PULSE 95; RESP 18; TEMP 97.8; O2SAT 99
[2025-04-23 10:24] VITALS: RESP 16
--- NOTE | 2025-04-23 15:42 | DISCHARGE SUMMARY-Residence ---
Discharge Summary Providers to Resident Creating Document: JANICETEMO, RES ~ Discharge Summary Admission Diagnosis: Alcohol withdrawal Hospital Course DATE OF ADMISSION: 04/21/25 DATE OF DISCHARGE: 04/23/25 Discharge Diagnosis\Comment: Alcohol Withdrawal Syndrome, CIWA score-11 Alcohol use disorder, binge drinking Anxiety Depression Ruled out UTI Operations\Procedures: None Consultants: None Complications: None Condition on DC: Stable New Medications: Naltrexone Hcl (Naltrexone Hcl) 50 Mg Tablet 1 TAB PO DAILY for 30 Days, #30 TAB 0 Refills Continued Medications: Bupropion HCl (Bupropion Xl) 150 Mg Tab.er.24h 2 TAB PO QAM for Depression Cyproheptadine HCl (Cyproheptadine HCl) 4 Mg Tablet 4 MG PO TID PRN for allergies Ergocalciferol (Vitamin D2) (Vitamin D2) 1,250 Mcg (95752 Unit) Capsule 1 CAP PO Q7D Escitalopram Oxalate (Escitalopram Oxalate) 20 Mg Tablet 30 MG PO QAM Folic Acid* (Folic Acid*) 0.4 Mg Tablet 1 TAB PO DAILY for 30 Days, #30 TAB [id number] Estr/Ethin Estra (Daysee 0.15-0.03-0.01 mg Tab) 150-30(84) Tbdspk.3mo 1 TAB PO DAILY Lorazepam (Ativan) 1 Mg Tablet 1 MG PO TID Mecobalamin (B12 Active) 1,000 Mcg Tab.chew 1 TAB PO DAILY for 30 Days, #30 TAB 0 Refills Ondansetron 8mg ODT (Ondansetron Odt) 8 Mg Tab.rapdis 1 TAB PO Q6H for nausea/vomiting for 3 Days, #12 TAB 0 Refills Propranolol Hcl (Propranolol Hcl) 20 Mg Tablet 1 TAB PO PRN Thiamine HCl (Vitamin B-1) 50 Mg Tablet 2 TAB PO DAILY for 30 Days, #60 TAB 0 Refills Zolpidem Tartrate (Ambien) 10 Mg Tablet 10 MG PO PRN MDD 20 mg Discontinued Medications: Lorazepam (Ativan) 1 Mg Tablet 1 TAB PO Q8H for alcohol w/d symptoms for 5 Days, #15 TAB 0 Refills Discharge Summary: HPI as per admitting physician: 44-year-old female with a history of alcohol use disorder presented [facility] with complaints of vomiting since last night. She states that she had nonbilious, nonbloody emesis with food contents more than 5 to 6 times, which started at 2:30 a.m. in the night. She reports that she ate eric roca with salad last night. She is from [place], [place] and was referred to [facility] by her PCP. She was seen here yesterday prior to entering [facility] after having drunk an entire bottle of Tequila. She was treated here and referred back to [facility]. Prescriptions for vitamins and Ativan were provided. She reports that the vitamins were dispensed but the Ativan was not. She states that she had diaphoresis and felt weak when she vomited. She reports feeling foggy, mildly confused and anxious. She also reports her hands shaking when she came to the ER, but has subsided now. She states that she feels her heart racing when she is anxious. She also reports right upper quadrant pain with a severity of 3/10 since last night. She had cholecystectomy in 2020. She reports having headache since last night which is getting better. She reports having alcohol withdrawal seizure and hallucinations a year ago. She states having POTS (postural orthostatic tachycardia syndrome) and states that she feels dizzy when she stands in the same place more than 10 minutes without moving. She is not agitated, denies having hallucinations or suicidal ideation. She denies chest pain, dizziness, shortness of breath, cough, palpitations, syncope, falls, changes in appetite or weight, fever, chills, melena, hematochezia, constipation, diarrhea, burning micturition, frequency, urgency, pruritus. Hospital course: CIWA score was 11. Vitals were stable on admission, labs showed ethyl al cohol<10, and urine tox screen was positive for barbiturates. Electrolytes were normal. CBC showed mild leukocytosis, possibly due to stress. Urinalysis was suggestive for UTI. Urine culture was ordered and demonstrated a contaminated specimen. IV Phenobarbital 260 mg, Benadryl 25 mg and compazine 10 mg were given in the ED. instructional media services technician and substance navigator were consulted She was started on alcohol withdrawal protocol along with IV thiamine and folic acid. Lipase and liver panel was normal. She was started on clear liquid diet and educated about the alcohol risks. Her urine culture showed mixed chanel. She was continued on her home medications for anxiety and depression. She did not complain of nausea or vomiting the next day and she stated that her shaking of hands improved. Patient did not experience further complications throughout the entire hospital stay. Patient was seen and examined on the day of discharge. All labs, diagnostic workups, discharge plan discussed with the patient in detail during visit before discharge. All questions and concerns answered to the best of my professional knowledge. Imaging: Abdomen US-04/21/25 Post cholecystectomy. No acute findings. Vital Signs Date Time Temp Pulse Resp B/P (MAP) Pulse Ox O2 Delivery O2 Flow Rate FiO2 04/23/25 10:24 16 04/23/25 10:00 97.8 94 131/66 (87) 99 04/23/25 08:58 Room Air 04/21/25 16:00 0.0 Laboratory Tests Test 04/21/25 17:55 04/21/25 21:34 04/22/25 06:18 04/22/25 08:45 Glucometer 97 mg/dl 107 mg/dl 108 mg/dl White Blood Count 7.5 X10'3 Red Blood Count 4.51 X10'6 Hemoglobin 12.4 g/dl Hematocrit 37.6 % Mean Corpuscular Volume 83.4 FL Mean Corpuscular Hemoglobin 27.4 PG Mean Corpuscular Hemoglobin Concent 32.9 g/dL Red Cell Distribution Width 15.2 % Platelet Count 276 X10'3 Mean Platelet Volume 7.4 FL Neutrophils (%) (Auto) 68.3 % Lymphocytes (%) (Auto) 22.8 % Monocytes (%) (Auto) 5.9 % Eosinophils (%) (Auto) 2.4 % Basophils (%) (Auto) 0.6 % Neutrophils # (Auto) 5.1 X10'3 Lymphocytes # (Auto) 1.7 X10'3 Monocytes # (Auto) 0.4 X10'3 Eosinophils # (Auto) 0.2 X10'3 Basophils # (Auto) 0.0 X10'3 CBC Comment Sodium Level 141 MMOL/L Potassium Level 3.4 MMOL/L Chloride Level 103 MMOL/L Carbon Dioxide Level 29.1 MMOL/L Anion Gap 9 Blood Urea Nitrogen 7 MG/DL Creatinine 0.72 MG/DL Estimated GFR/1.73 m2 88 ML/MIN BUN/Creatinine Ratio 9.7 Glucose Level 97 MG/DL Calcium Level 8.0 MG/DL Magnesium Level 1.8 MG/DL Total Bilirubin 0.8 MG/DL Direct Bilirubin 0.3 MG/DL Aspartate Amino Transf (AST/SGOT) 20 U/L Alanine Aminotransferase (ALT/SGPT) 21 U/L Alkaline Phosphatase 117 IU/L Total Protein 6.1 G/DL Albumin 2.4 G/DL Globulin 3.7 G/DL Albumin/Globulin Ratio 0.6 Triglycerides Level 174 MG/DL Cholesterol Level 157 MG/DL LDL Cholesterol 84 MG/DL HDL Cholesterol 37 MG/DL Cholesterol/HDL Ratio 4.2 Lipase 14 U/L Chemistry Comments Test 04/22/25 17:06 04/22/25 20:41 04/23/25 01:21 04/23/25 05:47 Glucometer 86 mg/dl 74 mg/dl 94 mg/dl White Blood Count 9.2 X10'3 Red Blood Count 4.44 X10'6 Hemoglobin 12.6 g/dl Hematocrit 38.3 % Mean Corpuscular Volume 86.1 FL Mean Corpuscular Hemoglobin 28.3 PG Mean Corpuscular Hemoglobin Concent 32.8 g/dL Red Cell Distribution Width 15.3 % Platelet Count 258 X10'3 Mean Platelet Volume 7.5 FL Neutrophils (%) (Auto) 79.0 % Lymphocytes (%) (Auto) 14.6 % Monocytes (%) (Auto) 3.5 % Eosinophils (%) (Auto) 2.0 % Basophils (%) (Auto) 0.9 % Neutrophils # (Auto) 7.2 X10'3 Lymphocytes # (Auto) 1.3 X10'3 Monocytes # (Auto) 0.3 X10'3 Eosinophils # (Auto) 0.2 X10'3 Basophils # (Auto) 0.1 X10'3 CBC Comment Sodium Level 142 MMOL/L Potassium Level 3.9 MMOL/L Chloride Level 104 MMOL/L Carbon Dioxide Level 29.7 MMOL/L Anion Gap 8 Blood Urea Nitrogen 6 MG/DL Creatinine 0.66 MG/DL Estimated GFR/1.73 m2 > 90 ML/MIN BUN/Creatinine Ratio 9.1 Glucose Level 90 MG/DL Calcium Level 8.3 MG/DL Magnesium Level 2.0 MG/DL Total Bilirubin 0.6 MG/DL Direct Bilirubin 0.1 MG/DL Aspartate Amino Transf (AST/SGOT) 20 U/L Alanine Aminotransferase (ALT/SGPT) 19 U/L Alkaline Phosphatase 114 IU/L Total Protein 6.3 G/DL Albumin 2.5 G/DL Globulin 3.8 G/DL Albumin/Globulin Ratio 0.7 Lipase 14 U/L Chemistry Comments Test 04/23/25 10:32 Glucometer 97 mg/dl Examination at discharge: General: Well alert, well oriented, not confused, not agitated, not in acute distress, well cooperated during the physical. HEENT: Conjunctive are pink, sclerae clear, no icterus, pupil is equal in both sides, reactive to light, no ear discharge, no pharyngeal erythema or an edema, mouth and lips are moist. Neck: Supple, no JVD, no lymphadenopathy and thyromegaly. Lungs:Equal air entry on both lungs, no additional sounds Heart: S1-S2 regular sinus rhythm and, regular rate, no gallops, no rubs, no murmurs Abdomen: No visible peristalsis, Bowel sounds present on auscultation, soft, nontender, no guarding, no rigidity Extremities: No obvious deformities, no pitting edema bilaterally, capillary refill intact, able to wiggle toes both sides, peripheral pulsations are intact on both sides CARTON MAKING MACHINE OPERATOR: No focal neurological deficits, no motor and sensory weakness in all 4 extremities, could move all 4 extremities Musculoskeletal: No joint swelling, deformities, inflammations, and no scoliosis and back tenderness Skin: No active skin lesions and rashes Advice on discharge: Follow up with PCP in 1 week Discuss about lorazepam and naltrexone with PCP and follow up with psychiatrist to discuss the same Recommended to stop binge drinking alcohol Call 911 or come to ER if any episodes of seizures, tremors, severe vomiting, abdominal pain etc The patient felt ready to be discharged and was medically cleared to be discharged on as 04/23/2025 The patient was seen and evaluated on day of discharge. Time spent on discharge 35 minutes *Problems/Diagnosis: (1) Alcohol withdrawal syndrome (2) Alcohol use disorder (3) Anxiety (4) Depression Total Time Spent on D/C: > 30 Minutes Date of Service: Apr 23, 2025 Billing Provider: ADRIAN GAUTAM DO Common Visit Codes: 38129-XBX/[id number] DISCH DAY >30min TEMO CAMACHO, RES Apr 23, 2025 15:30 ADRIAN GAUTAM DO Apr 23, 2025 17:21
== END 2025-04-23 13:40 | disposition home or self-care (01) | DRG 775 ==
LOC: ER 06:14 → ED HOLD 10:16 → ORTHO 4S 15:55
PROVIDERS: ADMIT Internal Medicine; ATTEND Internal Medicine
DX: F10.139 Alcohol abuse with withdrawal, unspecified (principal); G90.A Postural orthostatic tachycardia syndrome [POTS]; F41.9 Anxiety disorder, unspecified; F32.A Depression, unspecified; Z98.84 Bariatric surgery status; Z90.49 Acquired absence of other specified parts of digestive tract; Y90.0 Blood alcohol level of less than 20 mg/100 ml
CPT/HCPCS: 36415; 76700; 80053; 80061; 80305; 80320; 81001; 82248; 82607; 82948; 83036; 83690; 83735; 83880; 84100; 85025; 85610; 85730; 87081; 87088; 96361; 96374; 96375; 96376; 99285; G0378; J0780; J1200; J1644; J2560; J3411; J3490; J7030; J7040